=== PATIENT | female | born 1955 | race Caucasian/White ===

== ENCOUNTER 2025-02-02 06:58 | Day surgery (SDC) | payer MEDICARE, MEDICAID ==
[~2025-02-02] VITALS: Ht 175.3 cm; Wt 145.4 kg
[~2025-02-02 06:58] MED LIST: ATOR10TA70 PO; BUPR150T8 PO; GABA-1405 PO; HYDR12.55 PO; IBUP-1985 PO; LEVO125C5 PO; LORA10TA7 PO; METF-436 PO; OMEP40CA21 PO; VENLAFAXINE 150 MG PO
[2025-02-02 07:35] VITALS: BP 108/65; PULSE 76; RESP 18
[2025-02-02 09:28] VITALS: BP 103/68; PULSE 67; RESP 16; O2SAT 96
[2025-02-02 09:30] VITALS: BP 127/90; PULSE 67; RESP 12; O2SAT 95
[2025-02-02 09:40] VITALS: BP 137/89; PULSE 68; RESP 15; O2SAT 97
[2025-02-02 09:50] VITALS: BP 145/96; PULSE 65; RESP 12; O2SAT 98
[2025-02-02] MEDS ORDERED: propofol inj 20 ML IV ONE ×3 (10:14)
== END 2025-02-02 09:58 | disposition home or self-care (01) ==
LOC: GI LAB 06:58
PROVIDERS: ATTEND Internal Medicine Gastroenterology
DX: Z12.11 Encounter for screening for malignant neoplasm of colon (principal); K57.30 Diverticulosis of large intestine without perforation or abscess without bleeding; I10 Essential (primary) hypertension; E11.9 Type 2 diabetes mellitus without complications; E66.9 Obesity, unspecified; Z86.0100 Personal history of colon polyps, unspecified; Z79.2 Long term (current) use of antibiotics; Z79.899 Other long term (current) drug therapy; Z68.42 Body mass index [BMI] 45.0-49.9, adult
CPT/HCPCS: 82948; A4620; G0105; J2704; Z7512; Z7610; 43239; 45378